=== PATIENT | female | born 1950 | race Caucasian/White ===

== ENCOUNTER 2017-11-07 10:00 | Outpatient (CLI) | payer MEDICARE, OTHER | END 2017-11-07 10:01 | LOC: LAB.R 10:00 | PROVIDERS: ATTEND Family Medicine | DX: B34.9 Viral infection, unspecified (principal) | CPT/HCPCS: 87275; 87276 ==

== ENCOUNTER 2017-11-18 21:30 | Emergency (ER) | payer MEDICARE, OTHER ==
--- NOTE | 2017-11-18 22:21 | ED Physician Documentation ---
PD HPI BACK PAIN - Stated complaint Stated Complaint: BACK PX/POSS MED REACTION - Chief complaint Chief Complaint: Back Pain - History obtained from History obtained from: Patient - History of Present Illness Timing - onset: How many days ago (8) Timing - duration: Days (8) Timing - details: Abrupt onset (when coughed hard while carrying a light load ( laundry basket or such). Abrupt back pain that has persisted since. No neuro symptoms.), Still present, Waxing and waning Location: Lower, Right Quality: Pain, Sharp Associated symptoms: No: Fever, Weakness, Numbness, Incontinent of urine, Incontinent of stool (has been constipated the past few days.) Worsened by: Movement, Lifting, Other (her back has hurt considerably more with sitting in airplane - she had gone on trip to visit family just after the injury and back hurt a lot. Was tolerable with rest when there, and hurts a lot more again after flying back today.) Contributing factors: Other (hard cough while carrying light load initial symptoms.) Similar symptoms before: Has not had sx before Recently seen: Clinic (actually for cough and sinus congestion and Rx with Zpack , with improving symptoms.) Review of Systems Constitutional: denies: Fever, Chills Nose: reports: Congestion, Sinus pressure / pain Throat: denies: Sore throat Cardiac: denies: Chest pain / pressure Respiratory: reports: Cough. denies: Dyspnea, Wheezing GI: reports: Constipation. denies: Abdominal Pain, Nausea, Vomiting, Diarrhea : denies: Incontinent Skin: denies: Rash, Lesions Musculoskeletal: reports: Back pain Neurologic: denies: Focal weakness, Numbness PD PAST MEDICAL HISTORY - Past Medical History Cardiovascular: None Respiratory: None Neuro: None Endocrine/Autoimmune: None HEENT: Glaucoma Musculoskeletal: None - Past Surgical History Past Surgical History: Yes Ortho: Other - Present Medications Home Medications: Ambulatory Orders Medication Instructions Recorded Confirmed Azithromycin [Zithromax Tri-Fran] 1 tab PO DAILY 11/18/17 11/18/17 Dorzolamide HCl/Timolol Maleat 11/18/17 [Dorzolamide-Timolol Eye Drops] Pilocarpine 4% Ophth Drops [Isopto 11/18/17 Carpine 4% Ophth Drops] Travoprost [Travatan Z] 11/18/17 Docusate Calcium 240 mg PO DAILY #30 capsule 11/19/17 HYDROcod/ACETAM 5/325 [Morven 5/325] 1 tab PO Q6H PRN #25 tablet 11/19/17 Methocarbamol [Robaxin] 500 mg PO Q6H PRN #25 tablet 11/19/17 Naproxen 375 mg PO BID #20 tablet 11/19/17 - Allergies Allergies/Adverse Reactions: Allergies Allergy/AdvReac Type Severity Reaction Status Date / Time Penicillins AdvReac Unknown Verified 11/18/17 21:59 - Social History Does the pt smoke?: No Smoking Status: Never smoker Does the pt drink ETOH?: Yes Does the pt have substance abuse?: No PD ED PE NORMAL - Vitals Vital signs reviewed: Yes - General General: Alert and oriented X 3, Well developed/nourished, Other (holding back stiffly. Seems in pain. ) - Cardiac Cardiac: RRR, No murmur - Respiratory Respiratory: No respiratory distress, Clear bilaterally - Abdomen Abdomen: Soft, Non tender - Female Female : Deferred - Rectal Rectal: Deferred - Back Back: No CVA TTP, Other (back is painful at TL area without point tenderness, redness, nor rash. ) - Derm Derm: Normal color, Warm and dry, No rash - Extremities Extremities: No tenderness to palpate, Normal ROM s pain, No edema, No calf tenderness / cord - Neuro Neuro: Alert and oriented X 3, No motor deficit, No sensory deficit Results - Vitals Vitals: Vital Signs - 24 hr 11/18/17 21:43 Temperature 36.9 C Heart Rate 100 Respiratory 18 Rate Blood Pressure 162/73 H O2 Saturation 99 Oxygen O2 Source Room air - Rads (name of study) lumbar CT Radiology: Prelim report reviewed, EMP read contemporaneously (T12 compression/ burst fracture with 70% loss of height.) PD MEDICAL DECISION MAKING - ED course Complexity details: reviewed results, re-evaluated patient (she is feeling improved reasonably with meds in ED. She is 8 days post compression fracture without neuro symptoms, but has 70% loss of height with considerable pain, so likely candidate for vertebroplasty. Will refer to spine surgeon. ), considered differential, d/w patient, d/w family (spouse) - Sepsis Event Vital Signs: Vital Signs - 24 hr 11/18/17 21:43 Temperature 36.9 C Heart Rate 100 Respiratory 18 Rate Blood Pressure 162/73 H O2 Saturation 99 Oxygen O2 Source Room air Departure - Departure Disposition: 01 Home, Self Care Clinical Impression: Compression fx, thoracic spine Qualifiers: Encounter type: initial encounter Fracture type: closed Qualified Code(s): S22.000A - Wedge compression fracture of unspecified thoracic vertebra, initial encounter for closed fracture Condition: Stable Record reviewed to determine appropriate education?: Yes Instructions: ED Fx Comp Vertebral Follow-Up: Stephanie Gallego MD [Primary Care Provider] - [facility] [Provider Group] Prescriptions: Docusate Calcium 240 mg PO DAILY #30 capsule HYDROcod/ACETAM 5/325 [Morven 5/325] 1 tab PO Q6H PRN #25 tablet PRN Reason: Pain Methocarbamol [Robaxin] 500 mg PO Q6H PRN #25 tablet PRN Reason: Spasms Naproxen 375 mg PO BID #20 tablet Comments: Use a back brace for comfort when up and around. He can wear for sleep if that feels more comfortable but you do not have to have it on all the time. Activity as able based on comfort. Naproxen anti-inflammatory twice daily for the next 7-10 days. Robaxin muscle relaxant to decrease spasms and stiffness in the back. Add Tylenol or hydrocodone if needed for pains. Call [facility] tomorrow as I believe they have a spine surgeon in their group. If not contact Dr. Oates for a referral to one. Follow-up with spine surgeon for consideration of vertebroplasty to help firm the compression fracture and this will help reduce the pain.
[2017-11-18] MEDS ORDERED: KETOROLAC 30 MG/ML VIAL IM STA (22:42)
[2017-11-18] MEDS ORDERED: ACETAMINOPHEN 325 MG TABLET PO STA (22:42)
[2017-11-18] MEDS ORDERED: traMADol 50 MG TABLET PO STA (22:42)
[2017-11-18] MEDS ORDERED: METHOCARBAMOL 500 MG TABLET PO STA (22:42)
--- NOTE | 2017-11-18 23:38 | CT Report ---
Procedure Date: 11/18/2017 Accession Number: [id number] / [id number] Procedure: CT - Lumbar Spine W/O CPT Code: FULL RESULT: EXAM: CT LUMBAR SPINE WITHOUT CONTRAST EXAM DATE: 11/18/2017 11:06 PM. CLINICAL HISTORY: Lumbar back pain onset after deep cough. COMPARISONS: None. TECHNIQUE: Thin-section axial images were acquired of the lumbar spine from T11 to S3 without contrast. Post-processing: Coronal and sagittal reformats. Other: None. In accordance with CT protocol optimization, one or more of the following dose reduction techniques were utilized for this exam: automated exposure control, adjustment of mA and/or KV based on patient size, or use of iterative reconstructive technique. FINDINGS: There is a burst type fracture of the T12 vertebral body. There is 70% height loss anteriorly and there is 17 degrees angulation. Posterior aspect of vertebral body extends 4 mm into central canal. Disk Levels/Facets: T11-T12: There is mild to moderate central canal narrowing at the upper T12 level secondary to kyphosis and posterior bowing of T12 vertebral body. T12-l1: Unremarkable. L1-L2: Unremarkable. L2-L3: Unremarkable. L3-L4: Unremarkable. L4-L5: There is 5 mm anterolisthesis of L4 and L5. There is moderate facet hypertrophy. There is ligamentum flavum thickening with likely moderate central canal narrowing. L5-S1: Unremarkable. Musculature: Normal. No fatty atrophy. Other: There is paravertebral edema the T12 level. There is bibasilar atelectasis. Otherwise visualized adjacent soft tissues are unremarkable. IMPRESSION: 1. T12 complete burst type fracture with 70% anterior height loss and 17 degrees kyphosis (AO spine type A4). 2. Mild to moderate central canal narrowing at T12 level secondary to kyphosis and posterior bowing of vertebral body. 3. L4-L5 grade 1 anterolisthesis, disk bulge, and posterior element degenerative changes with likely moderate central canal narrowing. RADIA
[2017-11-19] MEDS ORDERED: HYDROcod/ACET 5/325 Prepack 4 PO STA (00:12)
[2017-11-19] MEDS ORDERED: DOCUSATE SODIUM 100 MG CAPSULE PO STA (00:15)
[2017-11-19 00:57] VITALS: BP 136/76
== END 2017-11-19 00:40 | disposition home or self-care (01) ==
LOC: ED 21:30
DX: M48.54XA Collapsed vertebra, not elsewhere classified, thoracic region, initial encounter for fracture (principal); X58.XXXA Exposure to other specified factors, initial encounter
CPT/HCPCS: 72131; 96372; 99283; A9270

== ENCOUNTER 2017-12-17 15:22 | Outpatient (CLI) | payer MEDICARE, OTHER ==
--- NOTE | 2017-12-18 08:29 | DEXA Report ---
Procedure Date: 12/17/2017 Accession Number: [id number] / [id number] Procedure: DEX - Dexa Spine and/or Hip CPT Code: FULL RESULT: EXAM: Dexa Spine and/or Hip DATE: 12/17/2017 4:09 PM CLINICAL HISTORY: OSTEOPOROSIS TECHNIQUE: Dual energy x-ray absorptiometry (DXA) was performed on a [facility]. Regions measured are the AP Spine, femoral neck, and if needed forearm. COMPARISON: None. In accordance with the International Society for Clinical Densitometry (ISCD) guidelines, data from previous exams may be reanalyzed using current recommendations and techniques. This is done to allow a more accurate basis for comparison with the current study. FINDINGS: The data for the lumbar spine is as follows: BMD (g/cm/cm) T-SCORE Z-SCORE REGION L1 1.061 -0.6 1.5 L2 0.966 -1.9 0.1 L3 0.971 -1.9 0.2 L4 0.947 -2.1 0.0 TOTAL 0.983 -1.6 0.4 NOTE: All evaluable vertebrae are used for classification The data for the hip is as follows: BMD (g/cm/cm) T-SCORE Z-SCORE REGION Neck 0.707 -2.4 -0.6 TOTAL 0.719 -2.3 -0.7 NOTE: The femoral neck or total proximal femur, whichever is lowest, is used for classification. IMPRESSION: THE WHO CLASSIFICATION BASED ON THE INTERNATIONAL REFERENCE STANDARD IS OSTEOPENIA. THE FRACTURE RISK IS INCREASED. RECOMMENDATION: Patients with diagnosis of osteoporosis or osteopenia should have regular bone mineral density assessment. For those eligible for Medicare, routine testing is allowed once every 2 years. Testing frequency can be increased for patients who have rapidly progressing disease or for those who are receiving medical therapy to restore bone mass. COMMENT: World Health Organization (WHO) definitions for osteoporosis and osteopenia: NORMAL BMD: T-score at -1.0 or higher, fracture risk is low OSTEOPENIA BMD: T-score between -1.0 and -2.5, fracture risk is increased. OSTEOPOROSIS BMD: T-score at -2.5 or lower, fracture risk is high. National Osteoporosis Foundation recommends: 1. Obtain adequate dietary calcium (at least 1200 mg per day) and vitamin D (400-800 international units per day). 2. Participate, as appropriate, in regular weightbearing and muscle-strengthening exercise. 3. Avoid tobacco use and reduce alcohol and caffeine intake. 4. For more detailed information see the website at www.NOF.org.
== END 2017-12-17 15:23 | disposition home or self-care (01) ==
LOC: DI 15:22
PROVIDERS: ATTEND Family Medicine
DX: M81.0 Age-related osteoporosis without current pathological fracture (principal); M85.89 Other specified disorders of bone density and structure, multiple sites
CPT/HCPCS: 77080

== ENCOUNTER 2017-12-18 09:42 | Outpatient (CLI) | payer MEDICARE, OTHER ==
[2017-12-18 12:02] LABS: BASOPHILS % (AUTO) 0.4 %; EOSINOPHILS % (AUTO) 0.5 %; HGB - HEMOGLOBIN 13.8 g/dL (12.0-16.0); LYMPHOCYTES # (AUTO) 1.3 10^3/uL (1.5-3.5); LYMPHOCYTES % (AUTO) 26.1 %; MEAN CORPUSCULAR HEMOGLOBIN 31.7 pg (27.0-31.0); MEAN CORPUSCULAR HGB CONC 34.2 g/dL (32.0-36.0); MEAN CORPUSCULAR VOLUME 92.8 fL (81.0-99.0); MEAN PLATELET VOLUME 8.3 fL (7.9-10.8); MONOCYTES # (AUTO) 0.5 10^3/uL (0.0-1.0); MONOCYTES % (AUTO) 9.3 %; NEUTROPHILS # (AUTO) 3.2 10^3/uL (1.5-6.6); NEUTROPHILS % (AUTO) 63.7 %; PLT - PLATELET COUNT 348 10^3/uL (130-450); RED BLOOD COUNT 4.35 10^6/uL (4.20-5.40); RED CELL DISTRIBUTION WIDTH 14.5 % (12.0-15.0)
[2017-12-18 13:07] LABS: ALBUMIN 4.2 g/dL (3.2-5.5); ALBUMIN/GLOBULIN RATIO 1.4 (1.0-2.2); ALKALINE PHOSPHATASE 66 IU/L (42-121); ALT ALANINE AMINOTRANSFERASE 30 IU/L (10-60); AST ASPARTATE AMINOTRANSFERASE 27 IU/L (10-42); BILIRUBIN,TOTAL 0.6 mg/dL (0.2-1.0); BUN - BLOOD UREA NITROGEN 16 mg/dL (6-20); CALCIUM 9.6 mg/dL (8.5-10.3); CARBON DIOXIDE - CO2 28 mmol/L (21-32); CHLORIDE 105 mmol/L (101-111); CHOL/HDL RATIO 2.9 (<4.4); CHOLESTEROL 216 mg/dL; CREATININE 0.6 mg/dL (0.4-1.0); GFR - MDRD 100 (>89); GLUCOSE 104 mg/dL (70-100); HDL CHOLESTEROL 74 mg/dL; LDL CHOLESTEROL,CALCULATED 133 mg/dL; LDL/HDL RATIO 1.8 (<4.4); SODIUM 140 mmol/L (135-145); TOTAL PROTEIN 7.1 g/dL (6.7-8.2); VLDL CHOLESTEROL 9 mg/dL
== END 2017-12-18 09:43 | disposition home or self-care (01) ==
LOC: LAB.WCP 09:42
PROVIDERS: ATTEND Family Medicine
DX: R07.89 Other chest pain (principal); R00.2 Palpitations; M81.0 Age-related osteoporosis without current pathological fracture; F43.22 Adjustment disorder with anxiety; M89.9 Disorder of bone, unspecified
CPT/HCPCS: 36415; 80053; 80061; 82306; 83721; 84443; 85025

== ENCOUNTER 2022-01-16 09:20 | Outpatient (CLI) | payer MEDICARE, OTHER ==
[2022-01-16 09:41] LABS: BASOPHILS % (AUTO) 0.4 %; EOSINOPHILS % (AUTO) 0.6 %; HCT - HEMATOCRIT 44.8 % (37.0-47.0); LYMPHOCYTES # (AUTO) 1.6 10^3/uL (1.5-3.5); LYMPHOCYTES % (AUTO) 33.4 %; MEAN CORPUSCULAR HEMOGLOBIN 31.3 pg (27.0-31.0); MEAN CORPUSCULAR HGB CONC 33.5 g/dL (32.0-36.0); MEAN CORPUSCULAR VOLUME 93.5 fL (81.0-99.0); MEAN PLATELET VOLUME 10.1 fL (7.9-10.8); MONOCYTES # (AUTO) 0.5 10^3/uL (0.0-1.0); MONOCYTES % (AUTO) 9.4 %; NEUTROPHILS # (AUTO) 2.7 10^3/uL (1.5-6.6); PLT - PLATELET COUNT 304 10^3/uL (130-450); RED BLOOD COUNT 4.79 10^6/uL (4.20-5.40); RED CELL DISTRIBUTION WIDTH 12.6 % (12.0-15.0); WHITE BLOOD COUNT 4.9 x10^3/uL (4.8-10.8)
[2022-01-16 10:01] LABS: ALBUMIN 4.4 g/dL (3.2-5.5); ALBUMIN/GLOBULIN RATIO 1.6 (1.0-2.2); ALKALINE PHOSPHATASE 53 IU/L (42-121); ALT ALANINE AMINOTRANSFERASE 23 IU/L (10-60); AST ASPARTATE AMINOTRANSFERASE 26 IU/L (10-42); BUN - BLOOD UREA NITROGEN 18 mg/dL (6-20); CALCIUM 9.6 mg/dL (8.5-10.3); CARBON DIOXIDE - CO2 27 mmol/L (21-32); CHLORIDE 103 mmol/L (101-111); CHOL/HDL RATIO 3.2 (<4.4); CHOLESTEROL 240 mg/dL; CREATININE 0.6 mg/dL (0.4-1.0); GFR - MDRD 99 (>89); GLUCOSE 105 mg/dL (70-100); HDL CHOLESTEROL 75 mg/dL; POTASSIUM 3.9 mmol/L (3.5-5.0); SODIUM 138 mmol/L (135-145); TOTAL PROTEIN 7.2 g/dL (6.7-8.2); TRIGLYCERIDES 38 mg/dL
[2022-01-16 10:13] LABS: THYROID STIMULATING HORMONE 1.36 uIU/mL (0.34-5.60)
== END 2022-01-16 09:21 | disposition home or self-care (01) ==
LOC: LAB 09:20
PROVIDERS: ATTEND Internal Medicine
DX: F43.22 Adjustment disorder with anxiety (principal); M89.9 Disorder of bone, unspecified; Z13.220 Encounter for screening for lipoid disorders; Z13.0 Encounter for screening for diseases of the blood and blood-forming organs and certain disorders involving the immune mechanism
CPT/HCPCS: 36415; 80053; 80061; 83721; 84443; 85025

== ENCOUNTER 2022-06-26 10:38 | Day surgery (SDC) | payer MEDICARE, OTHER ==
[2022-06-26] MEDS ORDERED: LACTATED RINGERS 1,000 ML IV ONE (11:00)
--- NOTE | 2022-06-26 11:09 | ANESTHESIA ---
Pre-Anesthesia VS, & Labs - Diagnosis screening - Procedure colonoscopy Height: 5 ft 5 in - NPO Other (prep as directed) - Is Patient ?: No Home Medications and Allergies Home Medications: Ambulatory Orders Bromfenac Sodium 1 drops RIGHTEYE DAILY 06/25/22 Latanoprost/Pf [Latanoprost 0.005% Eye Drop] 1 drops EACHEYE DAILY 06/25/22 Dorzolamide HCl/Timolol Maleat [Dorzolamide-Timolol Eye Drops] 1 drops EACHEYE DAILY 11/18/17 Bromfenac Sodium 1 drops RIGHTEYE DAILY 06/25/22 Latanoprost/Pf [Latanoprost 0.005% Eye Drop] 1 drops EACHEYE DAILY 06/25/22 Allergies/Adverse Reactions: Allergies Allergy/AdvReac Type Severity Reaction Status Date / Time Penicillins AdvReac Unknown Verified 11/18/17 21:59 Anes History & Medical History - Anesthetic History Anesthesia Complications: reports: Post-Operative Nausea/Vomiting - Medical History Cardiovascular: reports: Hypertension Pulmonary: reports: None Gastrointestinal: reports: None Urinary: reports: None Neuro: reports: None Musculoskeletal: reports: Osteoarthritis Endocrine/Autoimmune: reports: None Skin: reports: None Smoking Status: Never smoker History of Cancer?: Yes - Surgical History General: reports: Colonoscopy Eyes Ears Nose Throat (EENT): reports: Cataracts, Other Orthopedic: reports: Other Dermatologic: reports: Skin cancer surgery Exam General: Alert, Oriented x3 Dental: WNL Mouth Openin Fingerbreadth Neck Mobility: Normal Mallampati classification: II Thyromental Distance: 4-6 cm Respiratory: Lungs clear, Normal breath sounds Cardiovascular: Regular rate, Normal S1, Normal S2 Plan Anesthesia Type: Total IV Consent for Procedure(s) Verified and Reviewed: Yes Code Status: Attempt Resuscitation ASA classification: 2-Mild systemic disease Is this case an emergency?: No
[2022-06-26] MEDS ORDERED: PROPOFOL 500 MG/50 ML 500 MG/50 ML VIAL ONE (11:12)
[2022-06-26] MEDS ORDERED: ONDANSETRON 4 MG/2 ML VIAL ONE (11:54)
[2022-06-26] MEDS ORDERED: LIDOCAINE-MPF 2% 5 ML VIAL ONE (12:02)
[2022-06-26] MEDS ORDERED: LACTATED RINGERS 400 ML IV ONE (12:31)
[2022-06-26 13:21] VITALS: BP 123/70
--- NOTE | 2022-06-26 14:32 | ANESTHESIA POST OP EVALUATION ---
Anesthesia Post Eval - Post Anesthesia Eval Vitals: Last Vital Signs Temp 36.3 C L 06/26/22 13:11 Pulse 78 06/26/22 13:11 Resp 16 06/26/22 13:11 BP 123/70 06/26/22 13:11 Pulse Ox 98 06/26/22 13:11 O2 Flow Rate CV Function Including HR & BP: Stable Pain Control: Satisfactory Nausea & Vomiting: Negative Mental Status: Baseline Respiratory Status: Airway Patent Hydration Status: Satisfactory Anesthesia Complications: None
== END 2022-06-26 10:39 | disposition home or self-care (01) ==
LOC: SDS 10:38
PROVIDERS: ATTEND Surgery
PROC: 0DBL8ZX Excision of Transverse Colon, Via Natural or Artificial Opening Endoscopic, Diagnostic (ICD-10-PCS; principal; 2022-06-26 11:45)
DX: Z12.11 Encounter for screening for malignant neoplasm of colon (principal); K63.5 Polyp of colon; I10 Essential (primary) hypertension
CPT/HCPCS: 45380; J7120

== ENCOUNTER 2023-02-27 14:43 | Outpatient (CLI) | payer MEDICARE, OTHER ==
--- NOTE | 2023-02-28 09:33 | Mammography Report ---
BILATERAL DIGITAL SCREENING MAMMOGRAM 3D/2D: 02/27/2023 CLINICAL: Routine screening. Comparison is made to exams dated: 12/11/2021 mammogram and 05/25/2015 mammogram - [facility]. There are scattered areas of fibroglandular density in both breasts (category b / 25%-50% glandular t issue). No significant masses, calcifications, or other findings are seen in either breast. There has been no significant interval change. IMPRESSION: NEGATIVE There is no mammographic evidence of malignancy. A 1 year screening mammogram is recommended. Based on the Tyrer Cuzick model (a risk assessment model) the patients lifetime risk is 14.8% and he r 10 year risk is 10.3%. According to the ACR, ACS, and NCCN guidelines, an annual breast MRI exam al sy with mammogram is recommended if the patients lifetime risk is 20% or greater. This exam was interpreted at Station ID: [id number]. NOTE: For mammograms, a report in lay terms will be sent to the patient. Approximately 15% of breast malignancies will not be visualized mammographically. In the management of a palpable breast mass, a negative mammogram must not discourage biopsy of a clinically suspicious lesion. Electronically Signed By: Ozzie miller/annette:02/28/2023 08:51:08 letter sent: No_Letter ACR BI-RADS Category 1: Negative 3341F PARENCHYMAL PATTERN: (A) - The breast(s) demonstrate(s) scattered fibroglandular densities. BI-RADS CATEGORY: (1) - 1 Mammogram [id number] 1 year screening LATERALITY: (B)
== END 2023-02-27 14:44 | disposition home or self-care (01) ==
LOC: DI 14:43
PROVIDERS: ATTEND Internal Medicine
DX: Z12.31 Encounter for screening mammogram for malignant neoplasm of breast (principal); R92.323 Mammographic fibroglandular density, bilateral breasts

== ENCOUNTER 2023-05-09 18:37 | Outpatient (CLI) | payer MEDICARE, OTHER | END 2023-05-09 18:38 | disposition critical access hospital (66) | LOC: EMS 18:37 | DX: R42 Dizziness and giddiness (principal); R55 Syncope and collapse; R00.0 Tachycardia, unspecified; R03.0 Elevated blood-pressure reading, without diagnosis of hypertension | CPT/HCPCS: A0425; A0429 ==

== ENCOUNTER 2023-05-09 18:58 | Emergency (ER) | payer MEDICARE, OTHER ==
--- NOTE | 2023-05-09 19:26 | ED Physician Documentation ---
PD HPI SYNCOPE - Stated complaint Stated Complaint: DIZZINESS - Chief complaint Chief Complaint: Neuro - History obtained from History obtained from: Patient - Additional information Additional information: 72-year-old woman with history of glaucoma but otherwise very healthy. Over the last couple weeks she has noted mild headaches in the morning and seem to go away during the day. She attributed this to stress. She is also had ongoing left calf pain, she cannot really put a timeframe on it. She thinks it started after she had a plantar wart and then it alter her gait but seems to be continu ing despite the plantar wart being better. Tonight she was eating Armenian food at a local [place] restaurant and towards the end of the meal felt a wave come over her was presyncope. It lasted about 30 seconds. There is no associated chest pain or trouble breathing. She feels mostly back to normal, just a little bit "odd." PD PAST MEDICAL HISTORY - Past Medical History Past Medical History: Yes Cardiovascular: Hypertension Respiratory: None Neuro: None Endocrine/Autoimmune: None GI: None : None HEENT: Glaucoma Psych: None Musculoskeletal: Osteoarthritis Derm: None - Past Surgical History Past Surgical History: Yes General: Colonoscopy Ortho: Other HEENT: Cataracts, Other Derm: Skin cancer surgery - Present Medications Home Medications: Ambulatory Orders Medication Instructions Recorded Confirmed Dorzolamide HCl/Timolol Maleat 1 drops EACHEYE DAILY 11/18/17 05/09/23 [Dorzolamide-Timolol Eye Drops] Latanoprost/Pf [Latanoprost 0.005% 1 drops EACHEYE DAILY 06/25/22 05/09/23 Eye Drop] - Allergies Allergies/Adverse Reactions: Allergies Allergy/AdvReac Type Severity Reaction Status Date / Time Penicillins AdvReac Unknown Verified 05/09/23 19:08 - Social History Does the pt smoke?: No Smoking Status: Never smoker Does the pt drink ETOH?: Yes Does the pt have substance abuse?: No - Immunizations Immunizations are current?: Yes - POLST Patient has POLST: No PD ED PE NORMAL - Vitals Vital signs reviewed: Yes - General General: Alert and oriented X 3, No acute distress - HEENT HEENT: PERRL, EOMI - Neck Neck: Supple, no meningeal sign, No bony TTP, No bruit - Cardiac Cardiac: RRR, No murmur - Respiratory Respiratory: No respiratory distress, Clear bilaterally - Abdomen Abdomen: Non tender - Extremities Extremities: Other (Very mild left calf tenderness without signs of infection) - Neuro Neuro: Alert and oriented X 3, 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 Relevant findings are: Rate: Rate (enter#) (96) Rhythm: NSR Niles: Normal Intervals: Normal VA QRS: Normal Ischemia: Non specific changes. No: ST elevation c/w ischemia, ST depression - Labs Labs: Laboratory Tests 05/09/23 05/09/23 05/09/23 19:35 19:35 19:45 WBC 4.8 RBC 4.53 Hgb 13.8 Hct 43.0 MCV 94.9 MCH 30.5 MCHC 32.1 RDW 12.5 Plt Count 280 MPV 9.9 Neut # (Auto) 2.6 Lymph # (Auto) 1.8 Clayton # (Auto) 0.4 Eos # (Auto) 0.0 Baso # (Auto) 0.0 Absolute Nucleated RBC 0.00 Nucleated RBC % 0.0 D-Dimer < 200.0 L Sodium 141 Potassium 3.8 Chloride 107 Carbon Dioxide 27 Anion Gap 7.0 BUN 17 Creatinine 0.6 Estimated GFR (MDRD) 99 Glucose 134 H Calcium 9.6 Total Bilirubin 0.3 AST 28 ALT 22 Alkaline Phosphatase 74 Troponin I High Sens 4.2 Total Protein 7.0 Albumin 4.4 Globulin 2.6 Albumin/Globulin Ratio 1.7 Lipase 50 - Rads (name of study) CT of the head is unremarkable Relevant Findings:: Final report received, EMP independent interpretation of test PD Medical Decision Making - ED course ED course: Presyncopal episode at a [place] restaurant. No associated chest pain or trouble breathing and feeling back to normal now. She is having some left calf pain, the time course would not suggest DVT but will screen with D-dimer. New morning headaches at her age would necessitate a head CT. Most likely MSG reaction though. CBC, D-dimer, and CMP normal/negative, normal troponin. CT of the head is unremarkable. She is having chronic pain in her foot, D-dimer ruled out DVT but reasonable to have her see podiatry but unrelated to her presenting complaint. Departure - Departure Disposition: Home, Self Care Clinical Impression: Near syncope Headache Qualifiers: Headache type: unspecified Headache chronicity pattern: episodic headache Intractability: not intractable Qualified Code(s): R51.9 - Headache, unspecified Condition: Good Record reviewed to determine appropriate education?: Yes Instructions: ED Near Syncope Unkn Follow-Up: Lilly Rosenbaum DPM [Provider Admit Priv/Credential] - Comments: As discussed, extensive lab work, head CT, were normal. This rules out blood clot and makes heart issue very unlikely. Given your persistent foot pain, reasonable to follow-up with a carpenters supervisor, the local carpenters supervisor number is on this form. Return for new or worsening symptoms. You should also follow-up with your primary care physician, next available appointment. Forms: PCP List
[2023-05-09 19:51] LABS: BASOPHILS % (AUTO) 0.2 %; EOSINOPHILS % (AUTO) 0.6 %; HGB - HEMOGLOBIN 13.8 g/dL (12.0-16.0); LYMPHOCYTES # (AUTO) 1.8 10^3/uL (1.5-3.5); LYMPHOCYTES % (AUTO) 36.8 %; MEAN CORPUSCULAR HEMOGLOBIN 30.5 pg (27.0-31.0); MEAN CORPUSCULAR HGB CONC 32.1 g/dL (32.0-36.0); MEAN CORPUSCULAR VOLUME 94.9 fL (81.0-99.0); MEAN PLATELET VOLUME 9.9 fL (7.9-10.8); MONOCYTES # (AUTO) 0.4 10^3/uL (0.0-1.0); MONOCYTES % (AUTO) 7.3 %; NEUTROPHILS # (AUTO) 2.6 10^3/uL (1.5-6.6); NEUTROPHILS % (AUTO) 54.9 %; PLT - PLATELET COUNT 280 10^3/uL (130-450); RED BLOOD COUNT 4.53 10^6/uL (4.20-5.40); RED CELL DISTRIBUTION WIDTH 12.5 % (12.0-15.0); WHITE BLOOD COUNT 4.8 x10^3/uL (4.8-10.8)
[2023-05-09 20:03] LABS: ALBUMIN 4.4 g/dL (3.2-5.5); ALBUMIN/GLOBULIN RATIO 1.7 (1.0-2.2); BILIRUBIN,TOTAL 0.3 mg/dL (0.2-1.0); CALCIUM 9.6 mg/dL (8.5-10.3); CREATININE 0.6 mg/dL (0.6-1.3); POTASSIUM 3.8 mmol/L (3.5-4.5)
[2023-05-09 20:10] LABS: TROPONIN I HIGH SENSITIVITY 4.2 ng/L (2.3-14.8)
--- NOTE | 2023-05-09 21:42 | CT Report ---
PROCEDURE: Head WO INDICATIONS: headaches TECHNIQUE: Noncontrast 4.5 mm thick angled axial sections acquired from the foramen magnum to the vertex. For r adiation dose reduction, the following was used: automated exposure control, adjustment of mA and/or kV according to patient size. COMPARISON: None. FINDINGS: Image quality: Excellent. CSF spaces: Basal cisterns are patent. No extra-axial fluid collections. Ventricles are normal in size and shape. Brain: No midline shift. No intracranial masses or hemorrhage. Mild age-related global volume loss. Chairez-white matter interface is normal. Skull and face: Calvarium and visualized facial bones are intact, without suspicious lesions. Sinuses: Visualized sinuses and mastoids are clear. IMPRESSION: No acute intracranial pathology. Reviewed by: Jl Osborn MD on 05/09/2023 9:40 PM PST Approved by: Jl Osborn MD on 05/09/2023 9:40 PM PST Station ID: [id number]
[2023-05-09 23:00] VITALS: BP 155/73; O2SAT 97
== END 2023-05-09 22:54 | disposition home or self-care (01) ==
LOC: EDUNIT# → ED 18:58
DX: R55 Syncope and collapse (principal); R51.9 Headache, unspecified; M79.662 Pain in left lower leg; M79.672 Pain in left foot
CPT/HCPCS: 36415; 80053; 83690; 84484; 85025; 85379; 93005; 99283; 99284

== ENCOUNTER 2023-06-24 09:13 | Outpatient (CLI) | payer MEDICARE, OTHER ==
[2023-06-24 09:41] LABS: BASOPHILS % (AUTO) 0.3 %; EOSINOPHILS % (AUTO) 0.5 %; HCT - HEMATOCRIT 44.3 % (37.0-47.0); HGB - HEMOGLOBIN 14.3 g/dL (12.0-16.0); LYMPHOCYTES # (AUTO) 1.5 10^3/uL (1.5-3.5); LYMPHOCYTES % (AUTO) 39.4 %; MEAN CORPUSCULAR HEMOGLOBIN 30.4 pg (27.0-31.0); MEAN CORPUSCULAR HGB CONC 32.3 g/dL (32.0-36.0); MEAN CORPUSCULAR VOLUME 94.1 fL (81.0-99.0); MEAN PLATELET VOLUME 9.6 fL (7.9-10.8); MONOCYTES # (AUTO) 0.3 10^3/uL (0.0-1.0); MONOCYTES % (AUTO) 8.8 %; NEUTROPHILS # (AUTO) 1.9 10^3/uL (1.5-6.6); PLT - PLATELET COUNT 272 10^3/uL (130-450); RED BLOOD COUNT 4.71 10^6/uL (4.20-5.40); RED CELL DISTRIBUTION WIDTH 12.6 % (12.0-15.0); WHITE BLOOD COUNT 3.7 x10^3/uL (4.8-10.8)
[2023-06-24 09:54] LABS: ALBUMIN 4.2 g/dL (3.2-5.5); ALBUMIN/GLOBULIN RATIO 1.7 (1.0-2.2); ALKALINE PHOSPHATASE 55 IU/L (42-121); ALT ALANINE AMINOTRANSFERASE 17 IU/L (10-60); AST ASPARTATE AMINOTRANSFERASE 22 IU/L (10-42); BILIRUBIN,TOTAL 0.7 mg/dL (0.2-1.0); BUN - BLOOD UREA NITROGEN 16 mg/dL (6-20); CALCIUM 9.4 mg/dL (8.5-10.3); CARBON DIOXIDE - CO2 29 mmol/L (21-32); CHLORIDE 106 mmol/L (101-111); CHOL/HDL RATIO 2.9 (<4.4); CHOLESTEROL 208 mg/dL; CREATININE 0.6 mg/dL (0.6-1.3); GFR - MDRD 99 (>89); GLUCOSE 98 mg/dL (74-104); HDL CHOLESTEROL 72 mg/dL; LDL CHOLESTEROL,CALCULATED 125 mg/dL; LDL CHOLESTEROL,DIRECT 121 mg/dL (75-193); LDL/HDL RATIO 1.7 (<4.4); POTASSIUM 3.9 mmol/L (3.5-4.5); SODIUM 139 mmol/L (135-145); TOTAL PROTEIN 6.7 g/dL (6.4-8.9); TRIGLYCERIDES 56 mg/dL (48-352); VLDL CHOLESTEROL 11 mg/dL
[2023-06-24 10:09] LABS: THYROID STIMULATING HORMONE 1.69 uIU/mL (0.34-5.60)
== END 2023-06-24 09:14 | disposition home or self-care (01) ==
LOC: LAB 09:13
PROVIDERS: ATTEND Internal Medicine
DX: M81.0 Age-related osteoporosis without current pathological fracture (principal); I10 Essential (primary) hypertension; Z13.220 Encounter for screening for lipoid disorders; E55.9 Vitamin D deficiency, unspecified; Z13.29 Encounter for screening for other suspected endocrine disorder
CPT/HCPCS: 36415; 80053; 80061; 82306; 83721; 84443; 85025

== ENCOUNTER 2023-07-19 10:27 | Outpatient (CLI) | payer MEDICARE, OTHER ==
--- NOTE | 2023-07-19 11:31 | Sleep Patient Instructions ---
Sleep Center Visit Summary - Patient Visit Information Reason for Visit: Initial consult for evaluation of sleep disordered breathing and other sleep issues. - Patient Instructions Instructions Attached: Sleep Study Additional Instructions: You will be completing a sleep study, either an in-lab polysomnography (PSG) or home sleep study (HST). You will follow-up in the sleep care office after the sleep study is completed to hear the results and talk about therapy, if needed. You will be called by our office staff to schedule this appointment, but you may contact us with any questions. - Clinic Information Contact: [facility] [address] [place] [address] [email or web address] T: [phone]
--- NOTE | 2023-07-19 11:38 | SLEEP CARE CONSULTATION ---
Information from patient questionnaire entered by Tatiana Boudreaux. I have reviewed and concur with the information entered by Tatiana Boudreaux. This document represents the service I personally performed and the decisions made by me, Jyoti Hair ARNP. History of Present Illness Service Date and Time: 07/19/2023 1027 Reason for Visit: New patient Chief Complaint: reports: Snoring, Other (ELEVATED BP) Date of Onset: SEVERAL MONTHS Usual bedtime: 12AM Time it takes to fall asleep: 5MINS Snores at night: Yes (occasionally) Observed to quit breathing while asleep: No Number of times waking at night: 1-2 Reasons for waking at night: reports: Bathroom. denies: Choking, Gasping for air Toss, Turn, or Twitch while sleeping: No Recalls having dreams: Yes Usually gets out of bed at: 0830 Feels refreshed in the morning: Yes Morning headache: Yes (more lately; 1 time a week; resolves in an hour) Sleepy or fatigued during the day: Yes (sometimes) Ever fallen asleep while driving: No Takes day naps: Yes (2 times a month) Dreams during day naps: No Prior sleep studies: No Additional HPI information: I had the pleasure of seeing YOGI MARX today regarding the possibility of her having a sleep disorder. Her current complaints are snoring and elevated BP. She had a "incident" when eating out she felt like room was "spinning" and she went to ED but all tests came back fine. She has had episodes of high blood pressure but is not currently being treated for hypertension. At her followup with the primary she was told that she should have a sleep study. She says she feels that she has not trouble with sleep. She has a lot of stress in her life due to a situation with her daughter. She feels like sleep is the one thing she is good at in her life. She has a retainer that she wears at night for bruxism and has for 3 years. She says her has told her that she snores but he has not heard her stop breathing at night. She goes to sleep quickly when she lays down but will wake up once or twice to go to the bathroom at night. She normally wakes up feeling refreshed. - Parasomnia Symptoms Ever been unable to move upon waking from sleep: No Walks in sleep: No Talks in sleep: Yes Ever acted out dreams in sleep: No Ever felt weak in the knees when startled or emotional: No Bothered by creepy, crawly, restless sensations in legs: No Problems with memory or concentration: No Subjective Initial Atkins Sleepiness Scale score: 5 (07/19/23) Past Medical History Past Medical History: reports: Arthritis, Other (GLAUCOMA; has had elevated blood pressures but is not treated; bruxism) Social History The patient's occupation is a RE. Patient is and lives in [place]. Have you smoked in the past 12 months: No Alcohol use: Yes Alcohol amount and frequency: OCCASSIONALLY ONCE EVERY FEW MONTHS Caffeine use: Yes Caffeine amount and frequency: COFFEE LESS THAN A CUP A DAY Family History Family history of sleep disordered breathing: Yes Family Hx Sleep Apnea: Mother: Snoring, Father: Snoring, Sleep apnea - Untreated Allergies and Home Medications Known drug allergies: Yes ( LISTED ) Drug allergies reviewed: Yes Home medication list reviewed: Yes (as listed) Allergy and home medication list: Allergies Penicillins Adverse Reaction (Verified 07/17/23 15:19) Unknown Home Medications Medication Instructions Recorded Confirmed Last Taken Type Dorzolamide HCl/Timolol Maleat 1 drops EACHEYE DAILY 11/18/17 07/19/23 Unknown History [Dorzolamide-Timolol Eye Drops] Latanoprost/Pf [Latanoprost 0.005% 1 drops EACHEYE DAILY 06/25/22 07/19/23 Unknown History Eye Drop] Ascorbic Acid [Vitamin C] See Rx Instructions .ROUTE .COMPLEX 07/19/23 07/19/23 Unknown History Calcium Carbonate [Calcium] See Rx Instructions .ROUTE .COMPLEX 07/19/23 07/19/23 Unknown History Cholecalciferol (Vitamin D3) See Rx Instructions .ROUTE .COMPLEX 07/19/23 07/19/23 Unknown History [Vitamin D3] Morganza-3/Dha/Epa/Fish Oil [Fish Oil See Rx Instructions .ROUTE .COMPLEX 07/19/23 07/19/23 Unknown History 1,000 mg Softgel] Review of Systems Weight gain over past 5 years: 5 Cardiovascular: reports: high blood pressure (?) Gastrointestinal: denies: heartburn Neurological: denies: headaches Psychiatric: reports: anxiety Ear/Nose/Throat: reports: wisdom teeth removed. denies: tonsillectomy Musculoskeletal: reports: back pain Physical Exam Vital signs obtained and entered by: TATIANA Gross MA Blood Pressure: 179/93 (LEFT ARM) Cuff size: SMALL Heart Rate: 87 O2 Saturation: 99 Height: 5 ft 3 in Weight: 123 lb 9.6 oz Body Mass Index: 21.9 BMI Classification: Normal Neck circumference: 12.75 Mouth and throat: narrow oropharynx Soft palate: long Hard palate: normal Uvula: normal Uvula visualization: 0% Mallampati Class IV Tongue: normal in size Tonsils: small Heart: regular rate and rhythm Lungs: clear bilaterally Impression and Plan 1. Suspected Obstructive Sleep Apnea-Hypopnea Syndrome, as suggested by a history of irregular snoring, morning headache. She [] Narrow oropharynx and obesity are common predisposing factors for obstructive sleep apnea-hypopnea syndrome. I recommend proceeding to polysomnography to confirm the diagnosis and to assess severity. If the patient has significant sleep disordered breathing, a manual CPAP titration study will also be performed to find the optimal treatment pressure. I informed the patient of what the sleep studies involve and after some discussion, obtained agreement to proceed. The pathophysiology of obstructive sleep apnea-hypopnea syndrome was discussed with the patient and health risks of cardiovascular and cerebrovascular disease if not treated. Risks of drowsy driving discussed in detail and patient advised to avoid long distance driving and to wool puller at the first sign of drowsiness. Patient agreed to plan. * Schedule polysomnography * Avoid long distance driving or driving when feeling sleepy. * Avoid alcohol, sedative and muscle relaxant around bedtime. * Review instructions provided by trained office staff on how to prepare for the sleep study. * Return for follow-up after sleep study completed. Plan: PSG Visit Type: In Office Time Spent with Patient (minutes): 32 Provider Statement: I spent 100% of the Face to Face Visit with the patient with greater than 50% spent counseling the patient and coordination of care.
[2023-07-19 11:52] VITALS: BP 179/93; O2SAT 99
== END 2023-07-19 10:28 | disposition home or self-care (01) ==
LOC: SC 10:27
PROVIDERS: ATTEND Nurse Practitioner Family
DX: R06.83 Snoring (principal); R51.9 Headache, unspecified
CPT/HCPCS: 99203; G0463; 99212